=== PATIENT | male | born 1980 | race Caucasian/White ===

== ENCOUNTER 2017-01-04 12:38 | Emergency (ER) | payer OTHER, BC ==
[~2017-01-04] VITALS: Ht 185.4 cm; Wt 72.6 kg
[~2017-01-04 12:38] MED LIST: EYE DROPS
--- NOTE | 2017-01-04 14:43 | Diagnostic Imaging Report ---
EXAMINATION: Left tibia and fibula INDICATION: Injury leg pain AP and lateral views were obtained. There are no previous examinations available for comparison. There is no fracture, dislocation or acute bony abnormality evident. The knee and ankle joints are fairly well-maintained. The soft tissues are unremarkable. IMPRESSION: There is no evidence for an acute bony abnormality. Dictated by: Dictated on workstation # [id number]
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
[2017-01-04 15:58] VITALS: BP 118/83
== END 2017-01-04 15:58 | disposition home or self-care (01) ==
LOC: EDUNIT# 12:38 → ER 12:40
DX: S80.12XA Contusion of left lower leg, initial encounter (principal); F17.210 Nicotine dependence, cigarettes, uncomplicated; V47.6XXA Car passenger injured in collision with fixed or stationary object in traffic accident, initial encounter; Y92.414 Local residential or business street as the place of occurrence of the external cause; Y99.8 Other external cause status
CPT/HCPCS: 73590; 99283